=== PATIENT | female | born 1955 | race Caucasian/White ===

== ENCOUNTER 2024-10-18 15:33 | Emergency (ER) | payer OTHER, SELFPAY ==
[2024-10-18] VITALS (9 sets, daily range): BP systolic 173–250; BP diastolic 100–148; PULSE 69–87; RESP 16–19; TEMP 36.7–36.8; O2SAT 95–98; BMI 44.2
--- NOTE | 2024-10-18 15:43 | EKG_ITS ---
[facility] Test Date: 2024-10-18 Pat Name: RONEN WAN Department: Room: - Gender: Female Dba Developer: : [id number] Requested By: Pradeep Tsai (ALFONZO) Order Number: [id number] Reading MD: Pradeep Tsai (REGULATORY SUBMISSIONS SPECIALIST) Measurements Intervals [place] Rate: 77 P: 39 AL: 149 QRS: -20 QRSD: 86 T: 19 QT: 396 QTc: 448 Interpretive Statements SINUS RHYTHM WITH OCCASIONAL SUPRAVENTRICULAR PREMATURE COMPLEXES MINIMAL ST DEPRESSION [0.025+ mV ST DEPRESSION] Compared to ECG 09/01/2024 00:50:21 ST (T wave) deviation now present Left-axis deviation no longer present Myocardial infarct finding no longer present /store/S0/[id number].pdf
--- NOTE | 2024-10-18 15:44 | PD.EDRME ---
Rapid Medical Screening Exam RME Arrival date/time: 10/18/24 15:33 69-year-old female presents emergency department today complaints of nausea vomiting abdominal pain Chief Complaint: Abdominal Pain Vital signs: Vital Signs Temperature 98.2 F 10/18/24 15:40 Pulse Rate 69 10/18/24 15:40 Respiratory Rate 18 10/18/24 15:40 Blood Pressure 173/104 H 10/18/24 15:40 Pulse Oximetry (%) 97 10/18/24 15:40 Oxygen Delivery Method Room Air 10/18/24 15:40
[2024-10-18 16:10] LABS: Basophils # (Auto) 0.1 Thou/mm3 (0.0-0.2); Basophils % (Auto) 1 % (0-2.5); Eosinophils # (Auto) 0.1 Thou/mm3 (0.0-0.5); Eosinophils % (Auto) 1 % (0-10); Hematocrit 41.4 % (36.0-46.0); Immature Granulocytes % (Auto) 0 % (0-0); Immature Granulocytes Auto 0.06 Thou/mm3 (0.00-0.00); Lymphocytes # (Auto) 1.4 Thou/mm3 (1.0-4.8); Lymphocytes % (Auto) 10 % (10-50); Mean Corpuscular HGB Conc 31.4 g/dl (31.0-37.0); Mean Corpuscular Hemoglobin 24.1 pg (25.0-35.0); Mean Corpuscular Volume 77 fL (80-100); Monocytes # (Auto) 0.6 Thou/mm3 (0.0-0.8); Monocytes % (Auto) 4 % (0-12); Neutrophils # (Auto) 11.7 Thou/mm3 (1.8-7.7); Neutrophils % (Auto) 84 % (37-80); Nucleated Red Blood Cell % 0 /100 WBC (0); Platelet Count 331 Thou/mm3 (140-440); RDW Standard Deviation 46.5 fL (36.4-46.3); White Blood Count 13.9 Thou/mm3 (3.6-11.0)
[2024-10-18 16:29] LABS: Alanine Aminotransferase 23 U/L (10-49); Albumin, Serum 4.5 gm/dL (3.4-4.8); Albumin/Globulin Ratio 1.5 (1.2-2.2); Alkaline Phosphatase 97 U/L (46-116); Anion Gap 10 (7-16); Aspartate Amino Transferase 43 U/L (0-34); BUN/Creatinine Ratio 18 Ratio (12-20); Bilirubin,Total 0.7 mg/dL (0.3-1.2); Blood Urea Nitrogen 22 mg/dL (9-23); Chloride 96 mMol/L (98-107); Creatinine (Component) 1.2 mg/dL (0.6-1.3); Estimated Creatinine Clearance 52.1 mL/min (>60); Glucose 234 mg/dL (74-106); Lipase 23 U/L (12-53); Osmolality,Calculated 281 (275-295); Potassium 3.3 mMol/L (3.4-5.1); Sodium 135 mMol/L (136-145); Total Protein 7.5 gm/dL (5.7-8.2); Troponin I < 0.020 ng/mL (0.0-0.045); eGFR 48 See Note
[2024-10-18 16:51] LABS: B-Type Natriuretic Peptide 93 pg/mL (0-100)
[2024-10-18 19:45] LABS: Collection Type, Urine Clean Catch
[2024-10-18 19:53] LABS: Bilirubin,Urine Negative (Negative); Blood,Urine Negative (Negative); Clarity,Urine Clear (Clear/Hazy); Color,Urine Lt-Yellow (Lt Yel-Yel); Culture Indicated,Urine Not Indicated; Glucose, Urine 3+ (Negative); Hyaline Casts,Urine < 1 /hpf (0-1); Ketones,Urine 1+ (Negative); Leukocyte Esterase,Urine Negative (Negative); Nitrite,Urine Negative (Negative); Protein,Urine Trace (Neg - Trace); RBC,Urine 1 /hpf (0-3); Specific Gravity,Urine 1.015 (1.001-1.035); Squamous Epithelial Cell,Urine 6 /hpf (0-5); Urobilinogen,Urine Negative mg/dL (0.0-1.0); WBC,Urine 3 /hpf (0-5)
[2024-10-18 19:54] LABS: HCG Qualitative,Urine Negative
--- NOTE | 2024-10-18 19:58 | EDNOTE_ITS ---
<Statement entered by Mary Kate Alfredo MD - 10/19/24 21:13> As co-signing physician, I was present and available for consult prn. I concur with the plan and care as documented by the midlevel provider. ED General RME/HPI General Chief complaint: Abdominal Pain Stated complaint: ABD PAIN/VOMITING/NAUSEA FOR 3 DAYS Time Seen by Provider: 10/18/24 19:49 Arrival date/time: 10/18/24 15:33 CC: Center abdominal pain HPI ongoing for the past 2 days has had multiple episodes in the past. Patient also states that she has had some nausea vomiting. at bedside states that this has been a recurrent event for the last years . is somewhat frustrated and explains that after visiting here at [facility] the patient goes to fast food restaurant eats food and then feels the same the next day. Patient is currently nontoxic-appearing not any LOC active vomiting nor any diarrhea. RME / HPI RME / HPI narrative: 10/18/24 15:33 69-year-old female presents emergency department today complaints of nausea vomiting abdominal pain Related Data Home Medications ?Medication ?Instructions ?Recorded ?Confirmed clopidogrel 75 mg tablet 1 tab PO DAILY 06/22/22 06/12/24 aspirin 81 mg capsule 81 mg PO 1XD 12/11/23 06/12/24 melatonin 10 mg tablet 10 mg PO 1XD 12/11/23 06/12/24 Previous Rx's ?Medication ?Instructions ?Recorded ondansetron 4 mg disintegrating 4 mg PO Q8H PRN nausea and 06/10/24 tablet vomiting #15 tabs atenolol 50 mg tablet 50 mg PO HS 1 month #30 tabs 06/15/24 atorvastatin 10 mg tablet 10 mg PO HS 1 month #30 tabs 06/15/24 calcium 500 mg (as 1 tab PO BID 1 month #60 tabs 06/15/24 carbonate)-vitamin D3 3.125 mcg (125 unit) tablet duloxetine 30 mg capsule,delayed 60 mg (2 x 30 mg) PO DAILY 1 month 06/15/24 release #60 caps ropinirole 1 mg tablet 1 mg PO HS #30 tabs 06/15/24 cephalexin 500 mg capsule 500 mg PO QID #20 caps 07/27/24 dicyclomine 20 mg tablet 20 mg PO TID PRN Abdominal 07/27/24 Discomfort #14 tabs ondansetron 4 mg disintegrating 4 mg PO Q8H PRN nausea and 07/27/24 tablet vomiting #10 tabs hydrocodone 5 mg-acetaminophen 325 1 tab PO Q6H PRN pain #10 tabs 09/01/24 mg tablet ondansetron 4 mg disintegrating 4 mg PO Q6H PRN nausea and 09/01/24 tablet vomiting #10 tabs ciprofloxacin HCl 500 mg tablet 500 mg PO BID #14 tabs 09/03/24 famotidine 20 mg tablet 20 mg PO BID 6 weeks #84 tabs 10/18/24 ondansetron 4 mg disintegrating 4 mg PO Q8H #20 tabs 10/18/24 tablet Allergies Allergy/AdvReac Type Severity Reaction Status Date / Time WAYLON Inhibitors Allergy Severe Cough Verified 10/18/24 15:35 Sulfa (Sulfonamide Allergy Severe Rash Verified 10/18/24 15:35 Antibiotics) Review of Systems Review of Systems Narrative Review of Systems: GEN: No fever, no chills, no weight loss EYES: No discharge, no visual changes, no pain HEENT: No ear pain, no congestion, no sore throat PULM: No shortness of breath, no cough, no congestion CV: No chest pain, no dyspnea on exertion, no palpitations GI: + nausea, + vomiting, no diarrhea, + pain, no constipation : No frequency, no urgency, no dysuria MUSC/SKEL: No joint pain, no back pain SKIN: No rash PSYCH: No hallucinations, no depression HEME/LYMPH: No easy bleeding or bruising tendencies NEURO: No weakness, no headache ED Exam Narrative Physical exam: [General: Morbidly obese not in any acute distress Head normocephalic HEENT: Within acceptable limits Neck is supple nontender Chest equal chest rise nontender to palpation Respiratory: Clear to auscultation no wheezes crackles or rubs CV: Rate rhythm is regular no murmurs rubs or clicks Abdomen is grossly distended with a large pannus, soft, tenderness just proximal to the umbilicus on the pannus, no other tenderness in all 4 quadrants or pannus. positive bowel sounds all 4 quadrants Back: No CVA tenderness no spinous process tenderness from cervical spine thoracic and lumbar spine Skin: Intact no petechiae rash induration ulceration or crepitus Extremities: Moving all extremity against resistance cap refill less than 2 seconds neurosensory intact Neuro: Awake alert oriented x3 Glascow coma 15 no focal deficits] Course Course Course Narrative: I do lengthy discussion with the and the patient that they need to decrease processed foods including going out for dinner, and the need to stop buying processed foods, will start the patient on famotidine. Patient will be have nausea medicine reordered she is advised to follow-up with her PCP and remind them of chronic nausea as well as the chronic abdominal pain. I also discussed with the patient her morbid obesity and that she needs to have a desire to lose the weight herself. But she can discuss this with her primary care provider as well. Patient and acknowledged this conversation, I will not discharge the patient home with abdominal pain and chronic nausea. Quality Measures VTE prophylaxis Orders Category Date Time Status Bedside COVID-19 Antigen Test NOW Care 10/18/24 15:43 Active Bedside Influenza A&B Antigen Test NOW Care 10/18/24 15:43 Completed EKG (ED ONLY) *Do not use* NOW Care 10/18/24 15:43 Completed EKG (ED Only) Stat Exams 10/18/24 15:43 Draft BNP [B-Type Natriuretic Peptide] Stat Lab 10/18/24 15:53 Completed CBC Stat Lab 10/18/24 15:53 Completed Comprehensive Metabolic Panel Stat Lab 10/18/24 15:53 Completed HCG Qualitative,Urine Stat Lab 10/18/24 19:31 Completed Lipase Stat Lab 10/18/24 15:53 Completed Troponin I Stat Lab 10/18/24 15:53 Completed UA, C/S IF [Urinalysis, C/S if Indicated] Stat Lab 10/18/24 19:31 Completed Dicyclomine [Bentyl] Med 10/18/24 22:46 Discontinued 20 mg PO X1 ONE Ketorolac Inj [Toradol Inj] Med 10/18/24 20:23 Discontinued 30 mg IM X1 ONE Ondansetron Odt [Zofran Odt] Med 10/18/24 20:23 Discontinued 4 mg PO X1 ONE atenoloL Med 10/18/24 21:35 Discontinued 50 mg PO X1 ONE cloNIDine HCL [Catapres] Med 10/18/24 21:02 Discontinued 0.2 mg PO X1 ONE cloNIDine HCL [Catapres] Med 10/18/24 22:30 Discontinued 0.3 mg PO X1 ONE hydrALAZINE HCL [Apresoline] Med 10/18/24 21:03 Discontinued 25 mg PO X1 ONE hydrALAZINE HCL [Apresoline] Med 10/18/24 22:31 Discontinued 25 mg PO X1 ONE Vital Signs Vital signs: Vital Signs Temperature 98.2 F 10/18/24 15:40 Pulse Rate 69 10/18/24 15:40 Respiratory Rate 18 10/18/24 15:40 Blood Pressure 173/104 H 10/18/24 15:40 Pulse Oximetry (%) 97 10/18/24 15:40 Oxygen Delivery Method Room Air 10/18/24 15:40 [facility] Patient data External records reviewed:: [facility] previous records Clinical information provided by:: patient and spouse Social determinants that could affect healthcare access:: none Patient has the following chronic illnesses:: Morbid obesity hypertension How is presenting disease/condition affected by chronic disease/condition?: e xacerbated by Evaluation data The following diagnostics were reviewed and interpreted by me:: lab results and radiology exam(s) Lab and/or radiology exams considered but not ordered:: CBC shows leukocytosis no anemia thrombocytopenia CMP shows a sodium 135 potassium 3.3 chloride of 96 CO2 of 29.0 BUN of 22 creatinine 1.2 blood glucose level of 234. No transaminitis T. bili elevation Lipase is normal Urine is negative Interpretation Summary: Morbid obesity more likely after comments that the patient has a poor dietary intake including large amounts of processed foods. Patient has had a 7 CAT scans since the beginning of the year for the same complaint. With no acute findings blood glucose is noticed to be elevated but I do not see are in any diabetes medications. Medications Medications considered but not ordered:: None Medication administrations:: Medication Administration History Discontinued Medications Atenolol (Atenolol 25 Mg Tablet) 50 mg PO X1 ONE Stop: 10/18/24 21:36 Last Admin: 10/18/24 21:38 Dose: 50 mg Documented By: TC Clonidine (Clonidine Hcl 0.1 Mg Tablet) 0.2 mg PO X1 ONE Stop: 10/18/24 21:03 Last Admin: 10/18/24 21:07 Dose: 0.2 mg Documented By: TC Clonidine (Clonidine Hcl 0.1 Mg Tablet) 0.3 mg PO X1 ONE Stop: 10/18/24 22:31 Last Admin: 10/18/24 22:44 Dose: 0.3 mg Documented By: TC Dicyclomine HCl (Dicyclomine 10 Mg Capsule) 20 mg PO X1 ONE Stop: 10/18/24 22:47 Last Admin: 10/18/24 22:48 Dose: 20 mg Documented By: TC Hydralazine HCl (Hydralazine Hcl 25 Mg Tablet) 25 mg PO X1 ONE Stop: 10/18/24 21:04 Last Admin: 10/18/24 21:06 Dose: 25 mg Documented By: TC Hydralazine HCl (Hydralazine Hcl 25 Mg Tablet) 25 mg PO X1 ONE Stop: 10/18/24 22:32 Last Admin: 10/18/24 22:44 Dose: 25 mg Documented By: TC Ketorolac Tromethamine (Ketorolac Inj 60 Mg/2 Ml Vial) 30 mg IM X1 ONE Stop: 10/18/24 20:24 Last Admin: 10/18/24 20:39 Dose: 30 mg Documented By: TC Ondansetron HCl (Ondansetron Odt 4 Mg Tabrap) 4 mg PO X1 ONE; Protocol Stop: 10/18/24 20:24 Last Admin: 10/18/24 20:39 Dose: 4 mg Documented By: TC None Consultations Consultation(s) initiated? (list below): No Diagnosis Differential Diagnosis ED Complaint MDM: Morbid obesity, chronic abdominal pain chronic nausea Most likely diagnosis given after review of the tests above:: Morbid obesity chronic abdominal pain chronic nausea Admission Indicated Admission indicated?: not indicated Explain why admission is indicated or not indicated:: Stable for outpatient follow-up Admission Request Was there a request for admission?: No Disposition Plan Disposition Plan: Discharge Discharge Attestation Discharge Attestation: The patient and all family members were given an opportunity to ask questions and understood the discharge instructions. Discharge instructions specifically effects, indications for sooner follow up or return to the emergency department, and the expected course of current diagnosis. Patient condition: Stable Medical Decision Making Differential Diagnosis Differential Diagnosis: Morbid obesity, chronic abdominal pain chronic nausea Lab Data 10/18/24 15:53 10/18/24 15:53 Labs: Lab Results 10/18/24 10/18/24 Range/Units 15:53 19:31 WBC 13.9 H (3.6-11.0) Thou/mm3 RBC 5.40 H (4.00-5.20) Miln/mm3 Hgb 13.0 (12.0-16.0) g/dL Hct 41.4 (36.0-46.0) % MCV 77 L (80-100) fL MCH 24.1 L (25.0-35.0) pg MCHC 31.4 (31.0-37.0) g/dl RDW Std Deviation 46.5 H (36.4-46.3) fL Plt Count 331 D (140-440) Thou/mm3 Neut % (Auto) 84 H (37-80) % Lymph % (Auto) 10 (10-50) % [place] % (Auto) 4 (0-12) % Eos % (Auto) 1 (0-10) % Baso % (Auto) 1 (0-2.5) % Neut # (Auto) 11.7 H (1.8-7.7) Thou/mm3 Lymph # (Auto) 1.4 (1.0-4.8) Thou/mm3 [place] # (Auto) 0.6 (0.0-0.8) Thou/mm3 Eos # (Auto) 0.1 (0.0-0.5) Thou/mm3 Baso # (Auto) 0.1 (0.0-0.2) Thou/mm3 Immature Gran # (Auto) 0.06 H (0.00-0.00) Thou/mm3 Absolute Nucleated RBC 0.00 (0.00-0.00) Thou/mm3 Immature Gran % 0 (0-0) % Nucleated RBC % 0 (0) /100 WBC Sodium 135 L (136-145) mMol/L Potassium 3.3 L (3.4-5.1) mMol/L Chloride 96 L (98-107) mMol/L Carbon Dioxide 29.0 (20.0-31.0) mMol/L Anion Gap 10 (7-16) BUN 22 (9-23) mg/dL Creatinine 1.2 (0.6-1.3) mg/dL Estim Creat Clear Calc 52.1 L (>60) mL/min eGFR 48 L (60 - ) See Note BUN/Creatinine Ratio 18 (12-20) Ratio Glucose 234 H (74-106) mg/dL Calculated Osmolality 281 (275-295) Calcium 10.0 (8.3-10.6) mg/dL Corrected Calcium 10.0 (8.5-10.1) mg/dL Total Bilirubin 0.7 (0.3-1.2) mg/dL AST 43 H (0-34) U/L ALT 23 (10-49) U/L Alkaline Phosphatase 97 (46-116) U/L Troponin I < 0.020 (0.0-0.045) ng/mL B-Natriuretic Peptide 93 (0-100) pg/mL Total Protein 7.5 (5.7-8.2) gm/dL Albumin 4.5 (3.4-4.8) gm/dL Globulin 3.0 (2.3-3.5) gm/dL Albumin/Globulin Ratio 1.5 (1.2-2.2) Lipase 23 (12-53) U/L Ur Collection Type Clean Catch Urine Color Lt-Yellow (Lt Yel-Yel) Urine Clarity Clear (Clear/Hazy) Urine pH 7.0 (5.0-7.0) Ur Specific [place] 1.015 (1.001-1.035) Urine Protein Trace (Neg - Trace) Urine Glucose (UA) 3+ A (Negative) Urine Ketones 1+ A (Negative) Urine Blood Negative (Negative) Urine Nitrite Negative (Negative) Urine Bilirubin Negative (Negative) Urine Urobilinogen (Auto) Negative (0.0-1.0) mg/dL Ur Leukocyte Esterase Negative (Negative) Urine RBC 1 (0-3) /hpf Urine WBC 3 (0-5) /hpf Ur Squamous Epith Cells 6 H (0-5) /hpf Urine Bacteria None (None) Hyaline Casts < 1 (0-1) /hpf Ur Culture Indicated? Not Indicated Urine HCG, Qual Negative Discharge Plan Plan Patient Disposition: HOME (Self Care) Patient condition on transfer: Stable Prescriptions/Referrals Prescriptions/Med Rec: New famotidine 20 mg tablet 20 mg PO BID 42 Days Qty: 84 0RF ondansetron 4 mg tablet,disintegrating 4 mg PO Q8H Qty: 20 1RF No Action clopidogrel 75 mg tablet 1 tab PO DAILY Hold Instructions: Resume on 06/18/24. Patient Comments: TAKE 1 TABLET BY MOUTH ONCE DAILY melatonin 10 mg Tablet 10 mg PO 1XD aspirin 81 mg Capsule 81 mg PO 1XD Hold Instructions: Resume on 08/09/24. ondansetron 4 mg tablet,disintegrating 4 mg PO Q8H PRN (Reason: nausea and vomiting) Qty: 15 0RF cephalexin 500 mg capsule 500 mg PO QID Qty: 20 0RF dicyclomine 20 mg tablet 20 mg PO TID PRN (Reason: Abdominal Discomfort) Qty: 14 0RF ondansetron 4 mg tablet,disintegrating 4 mg PO Q8H PRN (Reason: nausea and vomiting) Qty: 10 0RF hydrocodone-acetaminophen 5-325 mg tablet 1 tab PO Q6H MDD 3 PRN (Reason: pain) Qty: 10 0RF ondansetron 4 mg tablet,disintegrating 4 mg PO Q6H PRN (Reason: nausea and vomiting) Qty: 10 0RF ciprofloxacin HCl 500 mg tablet 500 mg PO BID Qty: 14 0RF Rx Instructions: Stop duloxetine for 1 week atorvastatin 10 mg tablet 10 mg PO HS 30 Days Qty: 30 0RF atenolol 50 mg tablet 50 mg PO HS 30 Days Qty: 30 0RF duloxetine 30 mg capsule,delayed release(DR/EC) 60 mg PO DAILY 30 Days Qty: 60 0RF calcium carbonate-vitamin D3 500 mg-3.125 mcg (125 unit) Tablet 1 tab PO BID 30 Days Qty: 60 0RF ropinirole 1 mg tablet 1 mg PO HS Qty: 30 0RF Referrals: Karissa Goodman MD [Physician] - In 1 week Aminta Renner PA-C [Primary Care Provider] - In 1 week Problem List Clinical Impression: Morbid obesity with BMI of 40.0-44.9, adult, Chronic abdominal pain, Chronic nausea Patient/Caregiver Discharge Instructions Education Materials: Weight Management: Healthy Eating, Measuring Your Pain, Chronic Pain Therapies Mind Body, Obesity Doctor, ED Diet, [place] (Adult) Additional Instructions: Take the medications as needed, follow-up with your primary care provider promptly regarding chronic pain chronic nausea and morbid obesity if there is a worsening of symptoms return to the emergency room for reevaluation. Print Language: Kazakh Stand Alone Forms: [place] Award Info., Patient Portal Info Letter PA/HANNA Supervising Physician PA/HANNA Supervising Physician: Sajan Luna ENP
[2024-10-18] MEDS: KETOROLAC INJ 60 MG/2 ML VIAL 30 MG IM (20:39)
[2024-10-18] MEDS: ONDANSETRON ODT 4 MG TABRAP PO (20:39)
[2024-10-18] MEDS: hydrALAZINE HCL 25 MG TABLET PO ×2 (21:06→22:44)
[2024-10-18] MEDS: cloNIDine HCL 0.1 MG TABLET 0.2 MG PO (21:07)
[2024-10-18] MEDS: atenoloL 25 MG TABLET 50 MG PO (21:38)
[2024-10-18] MEDS: cloNIDine HCL 0.1 MG TABLET 0.3 MG PO (22:44)
[2024-10-18] MEDS: DICYCLOMINE 10 MG CAPSULE 20 MG PO (22:48)
== END 2024-10-18 23:17 | disposition home or self-care (01) ==
PROVIDERS: Nurse Practitioner Primary Care; Emergency Provider Emergency Medicine; PCP Physician Assistant
DX: G89.29 Other chronic pain (principal); R10.9 Unspecified abdominal pain; E66.01 Morbid (severe) obesity due to excess calories; Z68.41 Body mass index [BMI] 40.0-44.9, adult
CPT/HCPCS: 36415; 80053; 81001; 81025; 83690; 83880; 84484; 85025; 87400; 87811; 93005; 96372; 99283; J1885; Q0162; A9270